=== PATIENT | male | born 1985 | race Caucasian/White ===

== ENCOUNTER 2024-10-01 13:14 | Outpatient (CLI) | payer BC, SELFPAY ==
--- NOTE | 2024-10-01 13:21 | XR_ITS ---
FINAL REPORT CLINICAL HISTORY: ankle pain COMPARISON: None FINDINGS: RIGHT ANKLE: Three views of the right ankle were obtained. There is no acute fracture or dislocation. There are mild degenerative changes. The mortise are intact. There is medial ankle soft tissue swelling. IMPRESSION: Soft tissue swelling without acute bony abnormality. Reviewed, Interpreted and Dictated by Mohit Chou III, MD Transcribed by Basia Angelo Authenticated and [facility]
--- NOTE | 2024-10-01 13:21 | XR_ITS ---
FINAL REPORT CLINICAL HISTORY: foot pain COMPARISON: None FINDINGS: LEFT FOOT: Three views of the left foot were obtained. There is no acute fracture or dislocation. Mild degenerative changes are noted at the first metatarsophalangeal joint. Calcaneal spurs are noted. Calcification is noted in the distal Achilles tendon consistent with tendinitis. IMPRESSION: Findings consistent with tendinitis. Reviewed, Interpreted and Dictated by Mohit Chou III, MD Transcribed by Basia Angelo Authenticated and [facility]
--- NOTE | 2024-10-01 13:21 | XR_ITS ---
FINAL REPORT CLINICAL HISTORY: ankle pain COMPARISON: None FINDINGS: LEFT ANKLE: Three views of the left ankle were obtained. There is no acute fracture or dislocation. The joint spaces and mortise are intact. There is calcification noted in the distal Achilles tendon consistent with tendinitis. Small calcaneal spurs are noted. IMPRESSION: Findings consistent with tendinitis. Reviewed, Interpreted and Dictated by Mohit Chou III, MD Transcribed by Basia Angelo Authenticated and [facility]
--- NOTE | 2024-10-01 13:21 | XR_ITS ---
FINAL REPORT CLINICAL HISTORY: foot pain COMPARISON: None FINDINGS: RIGHT FOOT: Three views of the right foot were obtained. There is no acute fracture or dislocation. There are mild degenerative changes of the first metatarsophalangeal joint and mild degenerative changes of the midfoot. There is no soft tissue abnormality. IMPRESSION: Degenerative changes without acute bony abnormality. Reviewed, Interpreted and Dictated by Mohit Chou III, MD Transcribed by Basia Angelo Authenticated and [facility]
== END 2024-10-01 23:59 | disposition home or self-care (01) ==
LOC: RAD 13:16
PROVIDERS: PCP Nurse Practitioner Family; Visit Provider Podiatrist
DX: M79.671 Pain in right foot (principal); M79.672 Pain in left foot
CPT/HCPCS: 73610; 73630

== ENCOUNTER 2024-12-17 08:44 | Outpatient (RCR) | payer BC, SELFPAY ==
--- NOTE | 2024-12-17 09:57 | HMH.PTOPEV ---
PT Outpatient Evaluation Rehab PT Outpatient Evaluation Start: 12/17/24 09:01 Freq: Status: Active Protocol: Document 12/17/24 09:01 NATALIYANEFTALI (Rec: 12/17/24 09:56 JUN [id number]) E-signed By Kimberley Sheridan, PT Outpatient Therapy Subjective History Subjective History Pt is a 39 y/o male who reports chronic L Achilles pain. Pt reports initial injury 8 years ago when playing football on sloped ground. Pt reports worsening of pain 1 year ago after pivoting/twisting and pushing off the L foot. Pt reports he had a MRI of his L ankle in July of 2024 showing a ganglion cyst. Pt also had a L foot radiograph at [facility] on 08/15 with findings of There is no acute fracture or dislocation. Mild degenerative changes are noted at the first metatarsophalangeal joint. Calcaneal spurs are noted. Calcification is noted in the distal Achilles tendon consistent with tendinitis. Pt reports localized L heel pain that is aggravated by prolonged standing, walking, squatting, stair climbing, traversing a hill/incline, jogging/running and change of direction. Pt reports he feels he walks with a limp due to pain. Pt reports he works at [employer] and has to wear boots which aggravates pain. Pt reports he was given a heel lift by a airway traffic controller to wear in his work book which helps some but hurt his hips. Pt reports he just bought a pair of Ha tennis shoes to wear outside of work which have also helped with pain. Pt reports swelling at the end of the day and stiffness in the morning time or after sedentary periods. Pt denies further comorbidities to report. 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 Chief Complaint Pain,Swelling Symptom Type Throb,Sharp,Burning Symptoms Relieved By Rest/Positioning Symptoms Aggravated By Standing,Physical Activity, Twisting,Walking Current Functional Limitations Standing,Squatting,Recreation Activity,Walking,Stairs, Balance Symptom Description Constant but Variable Level of pain today (0-10) 4 Pain scale - at its best (0-10) 3 Pain scale - at its worst (0-10) 10 Ankle/Foot Eval Gait Observation General Gait Pattern Observation Antalgic Gait Assistive Device Ambulation Assistive Device None Palpation Tenderness left Ankle/Foot Palpation Findings Tenderness Ankle/Foot Palpation Overall Comment 2/4 TTP of marito deformity, distal achilles tt, medial gastroc ROM Ankle/Foot Dorsiflexion w/Knee Extended 10 Active Range Motion (degrees) Ankle/Foot Plantar Flexion Active Range 40 of Motion (degrees) Ankle/Foot Eversion Active Range of 15 Motion (degrees) Ankle/Foot Inversion Active Range of 25 Motion (degrees) MMT Ankle Dorsiflexion Strength Grade 5 Normal Ankle Plantarflexion Strength Grade 4 Good Foot Eversion Strength Grade 4 Good Foot Inversion Strength Grade 5 Normal Lower Extremity Functional Index Activities Today, do you or would you have any difficulty at all with: a.Any of your usual work, housework or No difficulty school activities b. Your usual hobbies, recreational or Extreme difficulty or unable sporting activities to perform activity c. Getting into or out of the bath No difficulty d. Walking between rooms No difficulty e. Putting on your shoes or socks No difficulty f. Squatting Moderate difficulty g. Lifting an object, like a bag of No difficulty groceries from the floor h. Performing light activities around No difficulty your home i. Performing heavy activities around No difficulty your home j. Getting into or out of a car No difficulty k. Walking 2 blocks Moderate difficulty l. Walking a mile Moderate difficulty m. Going up or down 10 stairs (about 1 A little bit of difficulty flight of stairs) n. Standing for 1 hour No difficulty o. Sitting for 1 hour No difficulty p. Running on even ground Extreme difficulty or unable to perform activity q. Running on uneven ground Extreme difficulty or unable to perform activity r. Making sharp turns while running fast Extreme difficulty or unable to perform activity s. Hopping Extreme difficulty or unable to perform activity t. Rolling over in bed No difficulty LEFI Score Lower Extremity Functional Index Score 53 Outpatient Therapy Assessment Impairments Problems/Impairmments Palpation Tenderness,Impaired Range of Motion,Impaired Strength,Impaired Gait Pattern ,Impaired Walking,Impaired Standing,Impaired Stair Climbing,Impaired Incline Stepping,Impaired Stepping on Uneven Surface,Impaired Recreational Activities, Impaired Running,Impaired Jumping,Impaired Work Activities,Impaired Balance, Increased Edema,Subjective C/O Pain,Impaired Self Care/Self Management Prognosis Rehab Potential Good Comment Barriers to progress include chronic pain and ability to only attend PT 1x/week due to work schedule Clinical Impression Consistent with Diagnosis Yes Short Term Goals Number of Weeks 3 Improve Tolerance to Work Activities Yes: report ability to work a half shift with pain 8/10 or less Improve LEFI Score Yes: Improve score to at least 58/80 to improve overall QOL Decrease Subjective C/O Pain Yes: Improve pain at worst to 8/10 to improve overall QOL Improve Self Care/Self Management Yes Patient to be Ind w/ HEP Yes Refrigeration Lead Goals Number of Weeks 6 Decreased Palpation Tenderness Yes: 0-1/4 TTP of L heel, achilles tt, medial gastroc Increase Range of Motion Yes: Improve L ankle AROM DF to 15, PF to 45 Increase Strength Yes: Improve L ankle MMT to 5/ 5 grossly to assist with function Improve Gait Pattern without Assistive Yes: non-antalgic in Device supportive tennis shoe to dec fall risk Improve Ability to Climb Stairs Yes: 1 flight reciprocally w p ! 6/10 or less to assist w community navigation Improve Tolerance to Work Activities Yes: report ability to work a full shift with pain 6/10 or less Improve Balance Yes: Perform L SLS on foam EO 30 without LOB to improve L ankle stability Improve LEFI Score Yes: Improve score to at least 65/80 to improve overall QOL Decrease Subjective C/O Pain Yes: Improve pain at worst to 6/10 to improve overall QOL Outpatient Therapy Plan of Care Treatment Plan May Include Therapeutic Exercise Including Home Yes Exercise Program Manual Therapy Techniques Yes Neuromuscular Re-education Yes Therapeutic Activities to Return to Yes Previous Functional/Work Level Gait Training Yes ADL/Self Care Education Yes Dry Needling Yes Thermal Modalities Yes Electrical Stimulation Yes Ultrasound/Phonophoresis Yes Iontophoresis Yes Orthotics/Bracing/Splinting Yes Vasopneumatic Compression Pump Yes Massage Yes Manual Lymphatic Drainage Yes Wound Care Yes Eval/Re-Eval Yes Frequency Times per week 2 Duration Number of Weeks 4-6 Addendums This patient is a candidate for social No or vocational rehab? Patient/Guardian verbally acknowledges Yes understanding of treatment program and consents to further treatment? Patient/Guardian verbally acknowledges Yes understanding of diagnosis, prognosis and goals for treatment? Eval Complexity PT Charges 09439 - Low Complexity Shoulder/Elbow Eval Shoulder Objective Measurements Elbow Objective Measurements PHYSICIAN CERTIFICATION: I certify the specified therapy services for Sahil Banion are required, authorized, and reviewed every 30 days.
== END 2024-12-17 23:59 | disposition home or self-care (01) ==
LOC: PT 08:44
PROVIDERS: PCP Nurse Practitioner Family; Visit Provider Nurse Practitioner
DX: M76.62 Achilles tendinitis, left leg (principal); M25.572 Pain in left ankle and joints of left foot; G89.29 Other chronic pain
CPT/HCPCS: 97163

== ENCOUNTER 2025-01-14 13:00 | Outpatient (RCR) | payer BC, SELFPAY | END 2025-01-14 23:59 | disposition home or self-care (01) | LOC: PT 13:00 | PROVIDERS: PCP Nurse Practitioner Family; Visit Provider Nurse Practitioner | DX: M76.62 Achilles tendinitis, left leg (principal); M25.572 Pain in left ankle and joints of left foot; G89.29 Other chronic pain | CPT/HCPCS: 97035; 97110; 97140; 97530 ==